=== PATIENT | male | born 1955 | race Caucasian/White ===

== ENCOUNTER 2020-04-07 23:10 | Emergency (ER) | payer OTHER ==
[~2020-04-07] VITALS: Ht 188 cm; Wt 84.0 kg
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
[2020-04-07] MEDS ORDERED: IPRATRPIUM/ALBUTEROL 0.5/2.5MG 3 ML NEBU. NEB ONE (23:45)
[2020-04-07] MEDS ORDERED: IV RINGERS SOLUTION,LACTATED 1,000 ML IV SCH (23:45)
[2020-04-07] MEDS ORDERED: ASPIRIN CHEWABLE 81 MG TABLET. PO ONE (23:45)
[2020-04-08 00:32] LABS: BASO % 1 % (0-3); EOS # 0.1 x10^3/uL (0.0-0.7); EOS % 1 % (0-3); HEMATOCRIT 42.8 % (39.0-53.0); HEMOGLOBIN 14.3 g/dL (13.0-17.5); LYMPH # 0.7 x10^3/uL (1.0-4.8); LYMPH % 9 % (24-48); MEAN CORPUSCULAR HEMOGLOBIN 31 pg (25-35); MEAN CORPUSCULAR HGB CONC 34 g/dL (31-37); MEAN CORPUSCULAR VOLUME 94 fL (79-100); MONO # 0.5 x10^3/uL (0.0-1.1); MONO % 7 % (0-9); NEUT # 6.6 x10^3uL (1.8-7.7); NEUT % 83 % (31-73); PLATELET COUNT 285 x10^3/uL (140-400); RED BLOOD COUNT 4.57 x10^6/uL (4.30-5.70); RED CELL DISTRIBUTION WIDTH 12.5 % (11.5-14.5); WHITE BLOOD COUNT 7.9 x10^3/uL (4.0-11.0)
[2020-04-08 00:50] LABS: CREATININE 1.1 mg/dL (0.7-1.3); GFR 70.3; POTASSIUM 3.7 mmol/L (3.5-5.1)
[2020-04-08 01:02] LABS: ALBUMIN 3.4 g/dL (3.4-5.0); DIRECT BILIRUBIN 0.1 mg/dL (0.0-0.2); MAGNESIUM 2.1 mg/dL (1.8-2.4); TOTAL BILIRUBIN 0.3 mg/dL (0.2-1.0); TOTAL PROTEIN 7.2 g/dL (6.4-8.2)
--- NOTE | 2020-04-08 01:40 | EKG ---
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
[2020-04-08] MEDS ORDERED: IV RINGERS SOLUTION,LACTATED 1,000 ML IV ONE (01:45)
[2020-04-08] MEDS ORDERED: ASPIRIN 325 MG TABLET PO ONE (03:45)
[2020-04-08] MEDS ORDERED: ENOXAPARIN ** NOTE DOSE ** SYRINGE SQ ONE (03:45)
[2020-04-08 03:50] LABS: CLARITY,URINE CLEAR; COLOR,URINE YELLOW
[2020-04-08 03:51] LABS: BACTERIA,URINE 0 /HPF (0-FEW); BILIRUBIN,URINE NEG (NEG); GLUCOSE,URINE NEG (NEG); NITRITE,URINE NEG (NEG); RBC,URINE 0 /HPF (0-2); SQUAMOUS EPITHELIAL CELL,UR OCC /LPF; UROBILINOGEN,URINE 0.2 mg/dL (0.2 mg/dL); WBC,URINE OCC /HPF (0-4)
[2020-04-08 03:57] LABS: AMPHETAMINE/METHAMPHETAMINE POS (NEG); BARBITURATES NEG (NEG); BENZODIAZEPINES NEG (NEG); CANNABINOIDS NEG (NEG); COCAINE NEG (NEG); METHADONE NEG (NEG); OPIATES NEG (NEG); PHENCYCLIDINE NEG (NEG)
[2020-04-08 04:00] VITALS: BP 128/82
--- NOTE | 2020-04-08 06:26 | RAD ---
INDICATION: Reason: S/P code, cpr, / Spl. Instructions: / History: COMPARISON: None. FINDINGS: Single view of chest obtained. Screw at the right scapula. Surgical clips at the mediastinum without enlargement of cardiac silhouet te. Probable old posttraumatic changes to left upper rib versus postsurgical changes. Mild haziness a t the right lung base IMPRESSION: * Mild haziness right lung base. Commonly from atelectasis given the location unless there is concer n for infiltrate Electronically signed by: Nii Ivey MD (04/08/2020 6:23 AM) [id number]
== END 2020-04-08 04:00 | disposition home or self-care (01) ==
LOC: EDBD 23:10 → ER 23:10
DX: S20.219A Contusion of unspecified front wall of thorax, initial encounter (principal); I46.9 Cardiac arrest, cause unspecified; F15.10 Other stimulant abuse, uncomplicated; R77.8 Other specified abnormalities of plasma proteins; R79.1 Abnormal coagulation profile; F17.210 Nicotine dependence, cigarettes, uncomplicated; F11.10 Opioid abuse, uncomplicated; X58.XXXA Exposure to other specified factors, initial encounter; Y93.89 Activity, other specified; Y92.89 Other specified places as the place of occurrence of the external cause; Y99.8 Other external cause status
CPT/HCPCS: 36415; 71045; 80048; 80076; 80307; 81001; 82550; 83690; 83735; 83880; 84443; 84484; 85025; 85379; 85610; 85730; 93005; 94640; 96360; 96361; 96372; 99285; G0480; J1650; J7120

== ENCOUNTER 2021-05-28 19:36 | Emergency (ER) | payer OTHER ==
[~2021-05-28] VITALS: Ht 188 cm; Wt 100.5 kg
[2021-05-28] MEDS ORDERED: NOREPINEPHRINE BITARTRATE 4 MG/4 ML VIAL. IV ONE (19:59)
[2021-05-28] MEDS ORDERED: IV NORMAL SALINE 250ML 250 ML ONE (19:59)
[2021-05-28] MEDS ORDERED: IV NORMAL SALINE 1,000ML 1,000 ML IV ONE (20:00)
[2021-05-28 20:12] LABS: BASO % 1 % (0-3); EOS # 0.1 x10^3/uL (0.0-0.7); EOS % 1 % (0-3); HEMATOCRIT 41.1 % (39.0-53.0); HEMOGLOBIN 11.9 g/dL (13.0-17.5); LYMPH % 39 % (24-48); MEAN CORPUSCULAR HEMOGLOBIN 27 pg (25-35); MEAN CORPUSCULAR HGB CONC 29 g/dL (31-37); MEAN CORPUSCULAR VOLUME 94 fL (79-100); MONO # 0.4 x10^3/uL (0.0-1.1); MONO % 8 % (0-9); NEUT # 2.6 x10^3uL (1.8-7.7); NEUT % 51 % (31-73); PLATELET COUNT 322 x10^3/uL (140-400); RED BLOOD COUNT 4.37 x10^6/uL (4.30-5.70); RED CELL DISTRIBUTION WIDTH 19.6 % (11.5-14.5)
[2021-05-28 20:14] LABS: CREATININE 1.7 mg/dL (0.7-1.3); GFR 40.9; POTASSIUM 5.1 mmol/L (3.5-5.1)
[2021-05-28 20:16] LABS: BARBITURATES NEG (NEG); BENZODIAZEPINES NEG (NEG); CANNABINOIDS NEG (NEG); COCAINE NEG (NEG); METHADONE NEG (NEG); OPIATES POS (NEG); PHENCYCLIDINE NEG (NEG)
--- NOTE | 2021-05-28 20:17 | PHYS DOC ---
General Adult EDM: Chief Complaint: CPR/FULL ARREST HPI: HPI: 65-year-old male presents via EMS as a CODE BLUE. All history comes from EMS reports. Patient was reported to be last known well by his family this morning. It is not completely clear how EMS was called. When they arrived the patient was found down. They did 5 rounds of epinephrine in route and did have return of spontaneous circulation twice. Second time was just prior to arrival. The patient has history of methamphetamine use. He was also reportedly just in the hospital couple of days ago for "fluid around the heart". No other history is available at this time. Review of Systems: Review of Systems: Unable to assess due to critical condition Current Medications: Current Meds: Current Medications Medications (Trade) Dose Ordered Sig/Naveed Start Time Stop Time Status Last Admin Dose Admin Norepinephrine Bitartrate (Levophed) 4 mg STK-MED ONCE 05/28/21 19:59 05/28/21 19:59 DC Sodium Bicarbonate (Sodium Bicarb Adult 8.4% Syr) 50 meq 1X ONCE 05/28/21 20:30 05/28/21 20:31 Sodium Chloride 250 ml @ As Directed STK-MED ONCE 05/28/21 19:59 05/28/21 19:59 DC Allergies: Allergies: Allergies Coded Allergies Type Severity Reaction Last Updated Verified Unable to Assess 05/28/21 No Physical Exam: PE: Constitutional: Well developed, well nourished, severe acute distress. [] HENT: Normocephalic, atraumatic, bilateral external ears normal, vomit in the oropharynx and nares. ET tube in place. [] Eyes: Pupils fixed and dilated [] Neck: No sign of trauma [] Cardiovascular: Heart rate 63, regular rhythm, no murmur [] Lungs & Thorax: Bilateral breath sounds diminished but clear [] Abdomen: no tenderness, no masses, no pulsatile masses. [] Skin: Cool, dry, no erythema, no rash. [] Back: No obvious trauma [] Extremities: IO in left lower leg, no obvious signs of trauma [] Neurologic: Unresponsive, no obvious reflexes. [] [] Current Patient Data: Labs: Laboratory Tests Test 05/28/21 19:45 Glucose (Fingerstick) 196 mg/dL (70-99) H EKG: EKG: Sinus rhythm, rate 86, normal axis, no significant ST elevation or depression, right bundle branch block. [] Radiology/Procedures: Radiology/Procedures: [] Heart Score: C/O Chest Pain: N/A Risk Factors: Risk Factors: DM, Current or recent (<one month) smoker, HTN, HLP, family history of CAD, obesity. Risk Scores: Score 0 - 3: 2.5% MACE over next 6 weeks - Discharge Home Score 4 - 6: 20.3% MACE over next 6 weeks - Admit for Clinical Observation Score 7 - 10: 72.7% MACE over next 6 weeks - Early Invasive Strategies Course & Med Decision Making: Course & Med Decision Making Pertinent Labs and Imaging studies reviewed. (See chart for details) The patient arrived with a palpable pulse. We continue to treat him by establishing additional IV access and giving him fluids. Patient's core temperature was found to be low so mild therapeutic morning was initiated. We want to maintain therapeutic cooling post ROSC. Patient was given 2 A of bicarb. His blood pressure diminished and so we started more epi drip. His intubation was verified with auscultation. He had bilateral breath sounds and no sounds in the abdomen. End-tidal CO2 and oxygen level were adequate. Bedside ultrasound showed cardiac contractility and no obvious significant pericardial effusion. See code sheet for more specific details. I spoke with Dr. Scott, hospitalist at [facility] and he has accepted the patient for transfer and admission. He will go by ambulance. [] Dragon Disclaimer: Dragkaylee Disclaimer: This electronic medical record was generated, in whole or in part, using a voice recognition dictation system. Departure Departure: Impression: Primary Impression: Cardiac arrest Additional Impression: Signs of return of spontaneous circulation Disposition: 02 SHORT TERM HOSPITAL Condition: GRAVE Referrals: PCP,ANI (PCP) WILL LOPEZ DO May 28, 2021 20:17
[2021-05-28 20:18] LABS: AMPHETAMINE/METHAMPHETAMINE NEG (NEG)
--- NOTE | 2021-05-28 20:19 | RAD ---
XR CHEST 1V Clinical History: CODE BLUE Technique: AP view of the chest was obtained at 05/28/2021 7:50 PM. Comparison: None. Findings: The endotracheal tube has its tip adequately positioned at the level of clavicles. There is an enteri c tube which is seen at least as far distal as the mid stomach. There is multiple overlying devices. The heart size appears within normal limits in size. The pulmonary pressure somewhat full and there i s perihilar linear opacities. Impression: Bilateral pulmonary infiltrates likely secondary to moderate pulmonary edema. Electronically signed by: John Lobato III, MD (05/28/2021 8:17 PM) SHELBIE
[2021-05-28 20:24] LABS: CLARITY,URINE CLEAR; COLOR,URINE YELLOW
[2021-05-28 20:25] LABS: BACTERIA,URINE MOD /HPF (0-FEW); GLUCOSE,URINE NEG (NEG); NITRITE,URINE NEG (NEG); SPERM,URINE PRESENT /HPF; SQUAMOUS EPITHELIAL CELL,UR MOD /LPF; UROBILINOGEN,URINE 0.2 mg/dL (0.2 mg/dL)
[2021-05-28 20:27] LABS: ALBUMIN 2.5 g/dL (3.4-5.0); ALBUMIN/GLOBULIN RATIO 0.6 (1.0-1.7); TOTAL BILIRUBIN 0.9 mg/dL (0.2-1.0); TOTAL PROTEIN 6.8 g/dL (6.4-8.2)
[2021-05-28] MEDS ORDERED: SODIUM BICARB ADULT 8.4% 50 MEQ/50 ML DISP.SYRIN. IV ONE ×2 (20:30)
[2021-05-28 21:15] LABS: % BANDS 1 % (0-9); % EOS 1 % (0-5); % LYMPHS 49 % (24-48); % MONOS 14 % (0-10); % SEGS 35 % (35-66); ANISOCYTOSIS SLIGHT; PLT ESTIMATE ADEQUATE (ADEQUATE)
[2021-05-28] MEDS ORDERED: PIPERACILLIN/TAZOBACTAM 3.375 GM VIAL IV ONE (21:18)
[2021-05-28] MEDS ORDERED: IV NORMAL SALINE 50ML 50 ML ONE (21:18)
[2021-05-28] MEDS ORDERED: PIPERACILLIN/TAZOBACTAM 3.375 GM in IV NORMAL SALINE 50ML 50 ML IV ONE (21:30)
[2021-05-28 21:57] LABS: INFLUENZA A PATIENT NEGATIVE (NEGATIVE); INFLUENZA B PATIENT NEGATIVE (NEGATIVE)
[2021-05-28] MEDS ORDERED: EPINEPHrine SYRINGE 1 MG/10 ML SYRINGE. ONE (22:00)
[2021-05-28] MEDS ORDERED: MIDAZOLAM HCL PF 5 MG/5 ML VIAL. IV ONE (22:00)
[2021-05-28 22:20] VITALS: BP 115/53
--- NOTE | 2021-05-28 22:54 | EKG ---
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
== END 2021-05-28 22:30 | disposition short-term general hospital (02) ==
LOC: EDBD → MERGE 19:36 → ER 19:36
DX: I46.9 Cardiac arrest, cause unspecified (principal); Z20.822 Contact with and (suspected) exposure to COVID-19
CPT/HCPCS: 36415; 36600; 71045; 80053; 80307; 81001; 82803; 82947; 84484; 85007; 85025; 87040; 87086; 87426; 87428; 93005; 96374; 96375; 96376; 99285; C9803; J0171; J2250; J2543; J7030; U0003; 94002